=== PATIENT | female | born 1975 | race Caucasian/White ===

== ENCOUNTER 2017-08-09 18:02 | Emergency (ER) | payer SELFPAY ==
[2017-08-09] MEDS ORDERED: Adacel (T-DAP) 0.5 ML VIAL ONE (18:44)
== END 2017-08-09 18:57 | disposition home or self-care (01) ==
LOC: SCSER 18:02
DX: T20.20XA Burn of second degree of head, face, and neck, unspecified site, initial encounter (principal); L03.211 Cellulitis of face; X19.XXXA Contact with other heat and hot substances, initial encounter
CPT/HCPCS: 90471; 90715

== ENCOUNTER 2019-09-27 11:29 | Emergency (ER) | payer SELFPAY ==
[2019-09-27 11:59] LABS: Bilirubin Negative (Negative); Blood, Urine Negative (Negative); Glucose, Urine (Dipstick) Negative (Negative); Leukocyte Negative (Negative); Nitrite Negative (Negative); Protein, Urine (Dipstick) Negative (Neg-Trace); Urobilinogen 0.2 mg/dL (Less than 2)
[2019-09-27 12:00] LABS: Clarity Clear (Clear)
[2019-09-27 12:09] LABS: #Basophils 0.1 thou/uL (0.0-0.2); #Eosinphils 0.1 thou/uL (0.0-0.7); #Lymphocytes 2.3 thou/uL (1.20-3.40); #Monocytes 0.5 thou/uL (0.11-0.59); #Neutrophils 4.1 thou/uL (1.40-6.50); %Basophils 1.5 % (0.0-1.0); %Lymphocytes 32.6 % (21.0-51.0); %Monocytes 6.4 % (0.0-10.0); %Neutrophils 57.5 % (42.0-75.0); Mean Corpuscular HGB CONC 30.6 g/dL (32.0-36.0); Mean Corpuscular Hemoglobin 29.7 pg (27.0-31.0); Mean Platelet Volume 9.7 fL (7.4-10.4); Platelet Count 265 thou/uL (130-400); RBC Distribution Width 13.1 % (11.5-14.5); Red Blood Cell (RBC) Count 4.06 mill/uL (4.20-5.40); White Blood Cell (WBC) Count 7.2 thou/uL (4.8-10.8)
[2019-09-27 12:17] LABS: BHCG - Serum Negative (NEGATIVE); Pregs Control Background? CLEAR/WHITE (CLR/WHITE); Pregs Control Bar Appear? YES (CONTROL BAR)
[2019-09-27 12:21] LABS: ALT (SGPT) 8 U/L (8-55); AST (SGOT) 13 U/L (5-34); Albumin 4.6 g/dL (3.5-5.0); Alkaline Phosphatase 52 U/L (40-110); Anion Gap 13 mmol/L (10-20); BUN (Urea Nitrogen) 12 mg/dL (7.0-18.7); Bilirubin, Total 0.7 mg/dL (0.2-1.2); Calc. Creatinine Clearance 0 mL/min (70-130); Calcium 8.9 mg/dL (7.8-10.44); Carbon Dioxide 27 mmol/L (22-29); Chloride 105 mmol/L (98-107); Estimated GFR-MDRD Greater than 90; Globulin 2.7 g/dL (2.4-3.5); Glucose 92 mg/dL (70-105); Potassium 3.7 mmol/L (3.5-5.1); Protein, Total 7.3 g/dL (6.0-8.3); Sodium 141 mmol/L (136-145)
[2019-09-27 12:45] LABS: Lipase 28 U/L (8-78)
[2019-09-27] MEDS ORDERED: traMADol HCl 50 MG TAB ONE (13:05)
--- NOTE | 2019-09-27 13:23 | CT ---
CT ABDOMEN AND PELVIS WITHOUT CONTRAST: Date: 09/27/19 HISTORY: Left lower quadrant abdominal pain. FINDINGS: Absence of oral and IV contrast reduces the sensitivity of exam, particularly for evaluation of solid organs and bowel. The lung bases are clear. No free air is seen. A tiny amount of free fluid is noted in the pelvis. No calcified gallstones are seen. A normal appearing appendix is noted. No calculi seen in the kidneys, ureters, or the urinary bladder. No hydroureteronephrosis seen on eit her side. Uterus and ovaries are present. There is a 3.0 cm cyst in the left ovary. An exophytic mass arising f rom the left side of the uterus with peripheral calcification is likely an exophytic fibroid, measuri ng 3.3 cm. No aneurysmal dilatation of the abdominal aorta is seen. Mild degenerative changes are seen in the lumbar spine. IMPRESSION: 1. No CT evidence of urinary tract calculi or obstruction. 2. Tiny amount of free fluid in the pelvis. 3. 3.0 cm left ovarian cyst. 4. Exophytic uterine fibroid. POS: ANABELA
== END 2019-09-27 13:20 | disposition home or self-care (01) ==
LOC: SCSER 11:29
DX: D25.9 Leiomyoma of uterus, unspecified (principal); N83.202 Unspecified ovarian cyst, left side
CPT/HCPCS: 74176; 80053; 81003; 83690; 84703; 85025

== ENCOUNTER 2019-11-17 13:43 | Outpatient (CLI) | payer OTHER | END 2019-11-17 13:44 | disposition home or self-care (01) | LOC: LABBT 13:43 | PROVIDERS: ATTEND Student in an Organized Health Care Education/Training Program | DX: Z01.810 Encounter for preprocedural cardiovascular examination (principal); N83.202 Unspecified ovarian cyst, left side; R10.2 Pelvic and perineal pain; N92.0 Excessive and frequent menstruation with regular cycle; D25.9 Leiomyoma of uterus, unspecified | CPT/HCPCS: 93005; 93010 ==

== ENCOUNTER 2019-11-20 05:56 | Day surgery (SDC) | payer OTHER ==
[2019-11-17 15:58] VITALS: BMI 22.1
[2019-11-17 17:17] LABS: Mean Corpuscular HGB CONC 32.9 g/dL (32.0-36.0); Mean Corpuscular Hemoglobin 30.5 pg (27.0-31.0); Mean Corpuscular Volume 92.7 fL (78.0-98.0); Mean Platelet Volume 9.4 fL (7.4-10.4); Platelet Count 255 thou/uL (130-400); RBC Distribution Width 12.5 % (11.5-14.5); Red Blood Cell (RBC) Count 4.26 mill/uL (4.20-5.40); White Blood Cell (WBC) Count 6.1 thou/uL (4.8-10.8)
[2019-11-20] MEDS ORDERED: cefTRIAXone\\ROCEPHIN 1 GM VIAL ONE (06:24)
[2019-11-20] MEDS ORDERED: Sodium Chloride 0.9% 0 ML ONE (06:25)
[2019-11-20] MEDS ORDERED: Fentanyl 100 MCG/2 ML VIAL ONE ×2 (06:42→10:05)
[2019-11-20] MEDS ORDERED: Meperidine HCl/PF 25 MG/ML VIAL ONE (06:42)
[2019-11-20] MEDS ORDERED: Famotidine/PF 20 mg/2ml Vial ONE ×2 (06:42→06:57)
[2019-11-20] MEDS ORDERED: Gabapentin 300 MG CAP ONE (06:56)
[2019-11-20] MEDS ORDERED: CeleCOXIB 100 MG CAP ONE (06:57)
[2019-11-20] MEDS ORDERED: Bupivacaine PF 0.5% 30 ML VIAL ONE (07:08)
[2019-11-20] MEDS ORDERED: Midazolam HCl 2 mg/2 ml Vial ONE (07:24)
[2019-11-20] MEDS ORDERED: Promethazine HCl 25 MG/ML VIAL IM PRN (09:17)
[2019-11-20] MEDS ORDERED: Meperidine HCl/PF 25 MG/ML VIAL SLOW IVP PRN (09:17)
[2019-11-20] MEDS ORDERED: Ondansetron HCl/PF 4 MG/2 ML Vial IVP PRN (09:17)
[2019-11-20] MEDS ORDERED: Promethazine HCl 25 MG/ML VIAL SLOW IVP PRN (09:17)
[2019-11-20] MEDS ORDERED: Lidocaine 1% PF 5 ML VIAL ONE (10:07)
[2019-11-20] MEDS ORDERED: Metoclopramide HCl 10 MG/2 ML VIAL ONE (10:07)
[2019-11-20] MEDS ORDERED: Dexamethasone 20 MG/5 ML VIAL ONE (10:07)
[2019-11-20] MEDS ORDERED: PROPOFOL 200 MG/20 ML VIAL ONE (10:07)
[2019-11-20] MEDS ORDERED: Rocuronium Bromide 10 MG/ML (10ML VIAL) ONE (10:07)
[2019-11-20] MEDS ORDERED: Ketorolac Tromethamine 30 MG/ML VIAL ONE (10:07)
[2019-11-20] MEDS ORDERED: Ondansetron PF 4 MG/2 ML Vial ONE (10:07)
[2019-11-20] MEDS ORDERED: Glycopyrrolate 0.2 MG/ML 5 ML SYRINGE ONE (10:07)
[2019-11-20] MEDS ORDERED: HYDROcodone/Acetaminophen 5/325 mg Tablet ONE ×4 (14:30→14:35)
[2019-11-20] MEDS ORDERED: Estradiol 0.1mg/24 Hour Patch (Weekly) TD SCH (14:45)
--- NOTE | 2019-11-20 17:21 | OP ---
DATE OF PROCEDURE: 11/20/2019 PREOPERATIVE DIAGNOSES: 1. Pelvic pain. 2. Menorrhagia. POSTOPERATIVE DIAGNOSES: 1. Pelvic pain. 2. Menorrhagia. 3. Endometriosis. PROCEDURES PERFORMED: Robotic-assisted total laparoscopic hysterectomy with bilateral salpingo-oophorectomy. ANESTHESIA: General endotracheal. PYROTECHNIST SURGEON: Pamella Giang. ESTIMATED BLOOD LOSS: 50 mL. IVF: 1700 mL crystalloid. URINE OUTPUT: 125 mL of clear urine. COMPLICATIONS: None. DRAINS: Farah catheter. PATHOLOGY: Uterus, cervix, bilateral fallopian tubes, and ovaries. FINDINGS: On exam under anesthesia, a mobile retroverted uterus sounded to 7 cm. The uterus was normal appearing intra-abdominally. The ovary had bilateral ovarian endometriomas. The fallopian tubes were normal. There were approximately 10 scattered endometriotic like implants in the pelvis, the pelvic sidewalls and the cul-de-sac. The ureters were dissected out retroperitoneally and visible peristalsing during the entire surgery. Low pressure check was performed and hemostasis was noted and the bladder was backfilled, and no incidental cystotomy was noted. DESCRIPTION OF PROCEDURE: The patient was taken to the operating room, where general anesthesia was obtained without difficulty. The patient was prepped and draped in sterile fashion in dorsal lithotomy position. Farah catheter was placed in the bladder. A speculum was placed in the vagina. The anterior lip of the cervix was grasped with a single-tooth tenaculum. The uterus sounded to 7 cm and the cervix was progressively dilated. The SOLIS manipulator was assembled with a 6 cm tip and a 3.5 cm colpotomizer ring. The SOLIS manipulator was inserted into the uterus and colpotomizer ring advanced, fit snugly around the cervix. Instruments were removed out of the vagina. Legs were placed in low lithotomy. Attention was turned to the abdomen. 0.5% Marcaine with epinephrine was infiltrated into the umbilicus and a 12-mm skin incision was made. The Veress needle was passed into the abdomen, noting an opening pressure of 2 mmHg. Pneumoperitoneum was obtained without difficulty. The Veress needle was removed. The 12-mm trocar was advanced into the abdomen and confirmed placement with robotic camera. Steep Trendelenburg was obtained. Right and left lower quadrant 8-mm ports were placed under direct visualization after infiltrating with anesthetic. A left upper quadrant 11-mm speech pathologist assistant port was also placed under direct visualization after infiltrating with anesthetic. The robot was then docked. The right robotic arm contained monopolar scissors. Left robotic arm contained a fenestrated bipolar. The surgeon console then took control. The right fallopian tube was grasped and elevated. The uterus was anteverted at this time. The endometriotic implants as well as the bilateral endometriomas were noted and decision was made to proceed with bilateral salpingo-oophorectomy secondary to the endometriosis. The ureter was noted at the pelvic brim and the infundibulopelvic ligament was clamped with the fenestrated and cauterized several times. The IP was then incised and hemostasis was noted. The mesovarium was also cauterized and incised to the round ligament, that was cauterized in the midportion and incised with the scissors. The posterior leaf of the broad ligament was dropped down. The ureter was noted running in the pelvic sidewall. The ureter was then dissected out by dropping down the posterior leaf of the broad ligament and was visible after this dissection in the pelvic sidewall and very lateral to the uterine pedicle. The anterior leaf of the broad ligament was also dropped down to the level of bladder flap. The bladder flap was created using an undermining with the fenestrated and incising with the scissors. The adventitia of the bladder flap was dissected off the pubocervical fascia with cautery as well as a bluntly dissection pushing down with the back end of the scissors down below the colpotomizer ring. The vessels were skeletonized adequately and attention was turned to the left side. The left fallopian tube was grasped and elevated. The ureter was noted at the pelvic brim and the infundibulopelvic ligament was cauterized with the fenestrated and incised with the scissors and this was taken down to the round ligament with cautery and incision. Hemostasis was noted. The posterior leaf of the broad ligament was also dropped down. The ureter was traced down to the pelvic sidewall and then dissected out retroperitoneally by incising posteriorly and blunt dissection with the fenestrated in the retroperitoneum. The anterior leaf of the broad ligament was also dropped down, incised with the scissors, and the uterine vessels were skeletonized. The vessels were then cauterized above the level of the internal cervical os. The right-sided vessels were also skeletonized. The bladder flap was scored. The colpotomy was then performed after cauterizing the vessels on the right side and incising them and the uterus was completely transected, removed into the vagina. The cuff was irrigated and suctioned. Hemostasis was achieved with the fenestrated. The scissors were traded out for the needle vacuum truck driver. A 2-0 Stratafix barbed suture was used to close the vagina in a running fashion, incorporating vaginal mucosa and posterior peritoneum in each bite and then run back for a 2nd layer. The needle was cut and removed out of the abdomen and the pelvis was again irrigated copiously and suctioned. Low pressure check was performed and hemostasis was noted. The ureters were again visualized and intact. The bladder was then backfilled and no injury was noted and there was no extravasation of saline. All instruments were removed out of the abdomen. The robot was undocked. The pneumoperitoneum was released. The fascia of the camera port was closed with a 0 Vicryl in a [id number] fashion. The skin was closed with 4-0 Monocryl in a subcuticular fashion. Dermabond was applied. The vaginal cuff was checked and noted to be hemostatic and all instruments removed out of the vagina. The patient tolerated the procedure well. Sponge and needle counts correct x2. The patient was taken to recovery room in stable condition. The patient received Ancef 2 g prior to the procedure. Job ID: [id number]
== END 2019-11-20 15:30 | disposition home or self-care (01) ==
LOC: SDC 05:56
PROVIDERS: ATTEND Student in an Organized Health Care Education/Training Program
PROC: 0UT24ZZ Resection of Bilateral Ovaries, Percutaneous Endoscopic Approach (ICD-10-PCS; principal; 2019-11-20)
PROC: 0UT94ZZ Resection of Uterus, Percutaneous Endoscopic Approach (ICD-10-PCS; principal; 2019-11-20)
PROC: 0UT74ZZ Resection of Bilateral Fallopian Tubes, Percutaneous Endoscopic Approach (ICD-10-PCS; principal; 2019-11-20)
DX: D25.2 Subserosal leiomyoma of uterus (principal); N80.2 Endometriosis of fallopian tube; N83.11 Corpus luteum cyst of right ovary; N83.02 Follicular cyst of left ovary; N72 Inflammatory disease of cervix uteri
CPT/HCPCS: 36415; 85027; 86850; 86900; 86901; 88307; J0690; J0696; J1100; J1885; J2001; J2175; J2250; J2405; J2704; J2765; J3010; S0020; S0028

== ENCOUNTER 2021-02-13 14:29 | Outpatient (CLI) | payer OTHER | END 2021-02-13 14:30 | disposition home or self-care (01) | LOC: BICMAMMO 14:29 | PROVIDERS: ATTEND Obstetrics & Gynecology | DX: N63.10 Unspecified lump in the right breast, unspecified quadrant (principal) | CPT/HCPCS: 77066; G0279 ==

== ENCOUNTER 2022-11-19 12:08 | Outpatient (CLI) | payer OTHER | END 2022-11-19 12:09 | disposition home or self-care (01) | LOC: BICCT 12:08 | PROVIDERS: ATTEND Internal Medicine Gastroenterology | DX: R10.9 Unspecified abdominal pain (principal); N28.9 Disorder of kidney and ureter, unspecified; Z90.710 Acquired absence of both cervix and uterus | CPT/HCPCS: 74177 ==

== ENCOUNTER 2023-01-01 15:24 | Emergency (ER) | payer OTHER, SELFPAY ==
[~2023-01-01 15:24] MED LIST: Iopamidol-370 76% 500 ML 1 ML ONE
[2023-01-01 16:05] LABS: #Basophils 0.1 thou/uL (0.0-0.2); #Eosinphils 0.1 thou/uL (0.0-0.7); #Monocytes 0.4 thou/uL (0.11-0.59); #Neutrophils 3.3 thou/uL (1.40-6.50); %Basophils 1.8 % (0.0-1.0); %Eosinophils 1.4 % (0.0-10.0); %Lymphocytes 34.2 % (21.0-51.0); %Monocytes 7.5 % (0.0-10.0); %Neutrophils 55.2 % (42.0-75.0); Hemoglobin 13.5 g/dL (12.0-16.0); Mean Corpuscular HGB CONC 32.8 g/dL (32.0-36.0); Mean Corpuscular Hemoglobin 31.8 pg (27.0-31.0); Mean Corpuscular Volume 96.9 fl (78.0-98.0); Mean Platelet Volume 8.2 fL (7.4-10.4); Platelet Count 287 10x3/uL (130-400); RBC Distribution Width 12.6 % (11.5-14.5); Red Blood Cell (RBC) Count 4.24 mill/uL (4.20-5.40); White Blood Cell (WBC) Count 5.9 10x3/uL (4.8-10.8)
[2023-01-01 16:29] LABS: ALT (SGPT) 18 U/L (8-55); AST (SGOT) 18 U/L (5-34); Albumin 4.9 g/dL (3.5-5.0); Alkaline Phosphatase 81 U/L (40-110); Anion Gap 12 mmol/L (10-20); BUN (Urea Nitrogen) 13 mg/dL (7.0-18.7); Calc. Creatinine Clearance 0 mL/min (70-130); Calcium 9.8 mg/dL (7.8-10.44); Carbon Dioxide 28 mmol/L (22-29); Chloride 101 mmol/L (98-107); Estimated GFR 97; Globulin 3.1 g/dL (2.4-3.5); Glucose 92 mg/dL (70-105); Lipase 19 U/L (8-78); Potassium 4.1 mmol/L (3.5-5.1); Sodium 137 mmol/L (136-145)
[2023-01-01 18:18] LABS: Bilirubin Negative (Negative); Blood, Urine Negative (Negative); Clarity Clear (Clear); Glucose, Urine (Dipstick) Normal (Negative); Ketone, Urine 10 mg/dL (Negative); Leukocyte Negative Leu/uL (Negative); Nitrite Negative (Negative); Protein, Urine (Dipstick) Negative (Neg-Trace); Specific Gravity, Urine 1.019 (1.002-1.036); Urobilinogen Normal mg/dL (Less than 2); pH, Urine 6.5 (5.0-9.0)
== END 2023-01-01 18:51 | disposition home or self-care (01) ==
LOC: ERS 15:24
DX: R30.0 Dysuria (principal)
CPT/HCPCS: 36415; 74177; 80053; 81003; 83690; 85025; Q9967

== ENCOUNTER 2025-07-19 09:43 | Emergency (ER) | payer SELFPAY ==
[2025-07-19 11:03] LABS: Bacteria/HPF None Seen HPF (None Seen); CAUTI Indications for Culture Pelvic or flank pain; Glucose, Urine (Dipstick) Normal (Negative); Leukocyte Negative Leu/uL (Negative); Protein, Urine (Dipstick) Negative (Neg-Trace); RBC/HPF 0-3 HPF (0-3); Specific Gravity, Urine 1.031 (1.002-1.036); WBC/HPF 0-3 HPF (0-3)
[2025-07-19 11:10] LABS: Urine Culture Reflex No No
[2025-07-19] MEDS ORDERED: Droperidol 5 MG/2 ML VIAL ONE (11:44)
[2025-07-19 11:53] LABS: #Basophils 0.05 10x3/uL (0.0-0.2); #Eosinophils 0.04 10x3/uL (0.0-0.7); #Monocytes 0.49 10x3/uL (0.11-0.59); #Neutrophils 5.08 10x3/uL (1.40-6.50); %Basophils 0.6 % (0.0-1.0); %Eosinophils 0.5 % (0.0-10.0); %Lymphocytes 29.9 % (21.0-51.0); %Monocytes 6.0 % (0.0-10.0); %Neutrophils 62.5 % (42.0-75.0); Hematocrit 41.0 % (36.0-47.0); Hemoglobin 13.3 g/dL (12.0-16.0); Mean Corpuscular Hemoglobin 30.5 pg (27.0-31.0); Mean Corpuscular Volume 94.0 fL (78.0-98.0); Platelet Count 307 10x3/uL (130-400); Red Blood Cell (RBC) Count 4.36 mill/uL (4.20-5.40); White Blood Cell (WBC) Count 8.13 10x3/uL (4.8-10.8)
[2025-07-19 12:06] LABS: INR-International Normal Ratio 1.0; Prothrombin Time 12.9 sec (12.0-14.7)
[2025-07-19 12:07] LABS: PTT 25.8 sec (22.9-36.1)
[2025-07-19 12:11] LABS: ALT (SGPT) 10 U/L (Less than 34); AST (SGOT) 19 U/L (11-34); Albumin 4.3 g/dL (3.1-4.5); Alkaline Phosphatase 70 U/L (40-110); Anion Gap 12 mmol/L (10-20); BUN (Urea Nitrogen) 15 mg/dL (7.0-18.7); Bilirubin, Total 0.5 mg/dL (0.3-1.2); Calc. Creatinine Clearance 0 mL/min (70-130); Calcium 9.1 mg/dL (7.8-10.44); Carbon Dioxide 26 mmol/L (22-29); Chloride 104 mmol/L (98-107); Globulin 3.1 g/dL (2.4-3.5); Glucose 87 mg/dL (70-105); Lipase 27 U/L (8-78); Potassium 4.1 mmol/L (3.5-5.1); Sodium 138 mmol/L (136-145)
[2025-07-19] MEDS ORDERED: Iopamidol-370 76% 500 ML MDV (1 ML CHARGE) ONE (12:50)
== END 2025-07-19 12:38 | disposition home or self-care (01) ==
LOC: ERS 09:43
DX: R19.7 Diarrhea, unspecified (principal); Z55.6 Problems related to health literacy
CPT/HCPCS: 36415; 70450; 74177; 80053; 81001; 83690; 85025; 85610; 85730; 96361; 96374; J1790; Q9967